=== PATIENT | female | born 1960 | race Caucasian/White ===

== ENCOUNTER 2017-03-23 20:08 | Observation (INO) | payer OTHER ==
[~2017-03-23] VITALS: Ht 154.9 cm; Wt 81.3 kg
[~2017-03-23 20:08] MED LIST: AMLODIPINE BENAZEPRI PO; AMLODIPINE5 MG PO; ASPIRIN LOW DOS81 M2 PO; BACTRIM DS1 TAB OR; BENAZEPRIL20 M1 PO; BYSTOLIC10 MG PO; CALCIUM500 M5 PO; CIPRO500 MG OR; EQ ASPIRIN81 M1 PO; FLINTSTONE1 PO; HTN MED; LISINOPRIL20 MG PO; LORTAB 7.57.5 MG PO; NORVASC10 M1 PO; PRAVACHOL20 MG PO; PRILOSEC40 MG PO
[2017-03-23] MEDS ORDERED: ELIQUIS5 MG PO (20:40)
[2017-03-23] MEDS ORDERED: OMEPRAZOLE10 MG PO (20:41)
[2017-03-23 20:48] LABS: HEMOGLOBIN 11.8 g/dl (12.0-16.0); IMMATURE GRANULOCYTES 0.3 % (0.0-1.0); MEAN CELL VOLUME 89.6 fL CALC (80.0-100.0); MEAN CORPUSCULAR HGB 29.4 pG CALC (26.0-32.0); MEAN CORPUSCULAR HGB CONC 32.8 g/L CALC (32.0-36.0); NEUT# 2.88 thou/uL (2.00-7.15); RED BLOOD COUNT 4.02 mill/uL (4.20-5.60); RED CELL DISTRI WIDTH 14.5 % (11.5-15.5)
[2017-03-23 21:05] LABS: ALKALINE PHOSPHATASE 78 u/l (38-126); ANION GAP 14 (6-22 (CALC)); BILIRUBIN, TOTAL 0.7 mg/dL (0.0-1.4); BUN 13 mg/dL (7-17); BUN/CREATININE RATIO 16 (12-20 (CALC)); CALCIUM 8.9 mg/dL (8.4-10.2); CARBON DIOXIDE 28 mmol/l (22-30); CHLORIDE 106 mmol/l (95-108); CREATININE 0.8 mg/dL (0.5-1.0); GFR > 60 ML/MIN (>=60 (CALC)); GFR FOR AFR.AMER. > 60 ML/MIN (>=60 (CALC)); GLUCOSE 91 mg/dL (65-105); POTASSIUM 2.6 mmol/l (3.5-5.1); SGOT/AST 38 u/l (14-36); SGPT/ALT 53 u/l (9-52); SODIUM 145 mmol/l (137-146)
[2017-03-23 21:07] LABS: ACT PARTIAL THROMBO TIME 31.3 SECONDS (20.0-32.5); PROTHROMBIN TIME 11.4 SECONDS (9.0-12.5)
[2017-03-23 21:18] LABS: MYOGLOBIN 46 ng/mL (0 - 62)
[2017-03-24 00:01] LABS: URINE BILIRUBIN - DIPSTICK NEGATIVE (NEGATIVE); URINE BLOOD DIPSTICK NEGATIVE (NEGATIVE); URINE CLARITY CLEAR; URINE COLOR YELLOW; URINE GLUCOSE - DIPSTICK NEGATIVE (NEGATIVE); URINE KETONE 15 mg/dL (NEGATIVE); URINE LEUK ESTERASE NEGATIVE (NEGATIVE); URINE NITRITE - DIPSTICK NEGATIVE (Negative); URINE PROTEIN - DIPSTICK NEGATIVE (NEG-TRACE); URINE SPECIFIC GRAVITY >=1.030
[2017-03-24 00:08] VITALS: BP 170/92
[2017-03-24 01:00] VITALS: BP 160/80
[2017-03-24 02:00] VITALS: BP 153/85
[2017-03-24 03:00] VITALS: BP 133/73
[2017-03-24 03:30] VITALS: BP 137/77
== END 2017-03-24 03:40 | disposition short-term general hospital (02) | DRG 313 ==
LOC: ED 20:08 → ED-I 23:15 → ED 23:32 → ICU 23:33
PROVIDERS: Emergency Medicine; ADMIT Internal Medicine; ATTEND Internal Medicine
DX: R07.9 Chest pain, unspecified (principal); I10 Essential (primary) hypertension; R74.8 Abnormal levels of other serum enzymes; Z86.711 Personal history of pulmonary embolism; Z86.718 Personal history of other venous thrombosis and embolism; Z98.84 Bariatric surgery status; Z79.01 Long term (current) use of anticoagulants

== ENCOUNTER 2023-02-28 09:49 | Emergency (ER) | payer OTHER ==
[~2023-02-28] VITALS: Ht 154.9 cm; Wt 66.0 kg
[~2023-02-28 09:49] MED LIST changes: +ELIQUIS5 MG PO; +OMEPRAZOLE10 MG PO
[2023-02-28 09:59] VITALS: BP 139/82
[2023-02-28] MEDS ORDERED: BP MED (10:18)
[2023-02-28 10:32] VITALS: BP 151/85
[2023-02-28 11:01] VITALS: BP 131/77
[2023-02-28 11:31] VITALS: BP 128/79
[2023-02-28 11:57] VITALS: BP 128/79
== END 2023-02-28 12:06 | disposition home or self-care (01) | DRG 556 ==
LOC: ED 09:49
DX: M79.602 Pain in left arm (principal); I10 Essential (primary) hypertension; W01.0XXA Fall on same level from slipping, tripping and stumbling without subsequent striking against object, initial encounter; Y93.E5 Activity, floor mopping and cleaning; Y92.89 Other specified places as the place of occurrence of the external cause; Y99.0 Civilian activity done for income or pay